=== PATIENT | male | born 1950 | race Caucasian/White ===

== ENCOUNTER 2017-02-10 10:57 | Inpatient (IN) | payer MEDICARE, OTHER ==
[~2017-02-10] VITALS: Ht 170.2 cm; Wt 70.4 kg
[~2017-02-10 10:57] MED LIST: BEVA25VI IV; CALC1CAP10 PO; CALC1CAP8 PO; FERR325T18 PO; MILK140C PO; MORP60TA34 PO; MULT-658 PO; OMEP40CA6 PO; OXYC20TA2 PO; OXYC5CAP2 PO; RANI150C PO; SAW160CA4 PO; SAW1CAPS2 PO; SUCR1ORA11 PO; SUCR1TAB PO
[2017-02-10] MEDS ORDERED: VANCOMYCIN PMX 1GM/200ML 200 ML IVPB SCH (12:00)
[2017-02-10] MEDS ORDERED: SODIUM CHLORIDE 0.9% 1,000ML IVBOLUS ONE ×2 (12:00→12:30)
[2017-02-10] MEDS ORDERED: ACETAMINOPHEN 500 MG TABLET PO ONE (12:00)
[2017-02-10] MEDS ORDERED: PIPERACILLIN/TAZO/PMX 3.375GM 50 ML IVPB ONE (12:00)
[2017-02-10] MEDS ORDERED: VANCOMYCIN PER PHARMACY IV ONE (12:00)
[2017-02-10] MEDS ORDERED: HYDROmorphone 1 MG/ML, 1ML IVPush PRN (12:00)
[2017-02-10] MEDS ORDERED: SODIUM CHLORIDE FLUSH 10ML SYR IVF ONE (12:00)
[2017-02-10 12:07] LABS: MEAN CORPUSCULAR HEMOGLOBIN 28.6 pg (27.5-34.5); MEAN CORPUSCULAR HGB CONC 33.1 g/dL (33.2-36.2); MEAN CORPUSCULAR VOLUME 86.3 fL (81-97); MEAN PLATELET VOLUME 9.8 fL (7.4-10.4); PLATELET COUNT 212 x10^3/uL (130-400); RED BLOOD COUNT 5.28 x10^6/uL (4.38-5.82); RED CELL DISTRIBUTION WIDTH 18.6 % (9.4-14.8)
[2017-02-10] MEDS ORDERED: ACETAMINOPHEN 500 MG TABLET ONE (12:08)
[2017-02-10] MEDS ORDERED: HYDROmorphone 2 MG/ML, 1ML ONE ×3 (12:09→19:21)
[2017-02-10] MEDS ORDERED: PIPERACILLIN/TAZO/PMX 3.375GM 50 ML ONE ×2 (12:09→21:11)
[2017-02-10 12:15] LABS: INTERNATIONAL NORMALIZED RATIO 1.24 (0.93-1.1); PROTHROMBIN TIME 12.7 Seconds (9.6-11.5)
[2017-02-10 12:19] LABS: RAPID INFLUENZA A Negative (Negative); RAPID INFLUENZA B Negative (Negative)
[2017-02-10 12:20] LABS: ALBUMIN 2.6 g/dL (3.4-5.0); ANION GAP 8 mmol/L (5-15); CALCIUM 8.7 mg/dL (8.5-10.1); CHLORIDE 101 mmol/L (98-107)
[2017-02-10 12:26] LABS: MD YES
[2017-02-10 12:28] LABS: BAND#(MANUAL) 0.98 x10^3/uL; BANDS%(MANUAL) 10 % (0-7); LYMPH#(MANUAL) 0.39 x10^3/uL (1-3.4); LYMPHS% (MANUAL) 4 % (22-44); MONOS% (MANUAL) 1 % (2-9); SEG#(MANUAL) 8.33 x10^3/uL (1.8-6.8); SEGS% (MANUAL) 85 % (42-75)
[2017-02-10 12:29] LABS: <PLATELET ESTIMATE> ADEQUATE; <PLT MORPHOLOGY> NORMAL PLT MORPH; ANISOCYTOSIS 1+
[2017-02-10 12:34] LABS: ALANINE AMINOTRANSFERASE 116 U/L (12-78); BILIRUBIN,TOTAL 5.1 mg/dL (0.2-1.0); CREATININE 0.91 mg/dL (0.7-1.3); TOTAL PROTEIN 7.3 g/dL (6.4-8.2)
[2017-02-10 12:42] LABS: ALKALINE PHOSPHATASE 1013 U/L (45-117)
[2017-02-10] MEDS: SODIUM CHLORIDE 0.9% 1,000 ML IV SCH (13:28)
[2017-02-10] MEDS ORDERED: LABETALOL 5MG/ML, 20ML IVPush PRN (13:30)
[2017-02-10] MEDS: SUCRALFATE 1 GM TABLET PO SCH ×2 (13:30→21:18)
[2017-02-10] MEDS ORDERED: ACETAMINOPHEN 325 MG TABLET PO PRN (13:30)
[2017-02-10] MEDS ORDERED: ONDANSETRON ODT 4 MG PO PRN (13:30)
[2017-02-10] MEDS ORDERED: ONDANSETRON 2MG/ML, 2ML IVPush PRN (13:30)
[2017-02-10] MEDS ORDERED: ENALAPRILAT 1.25 MG/ML, 2ML IVPush PRN (13:30)
[2017-02-10 13:46] LABS: HCT (SEDRATE) 45.5 % (39.2-51.8)
[2017-02-10] MEDS ORDERED: VANCOMYCIN PER PHARMACY MC PRN (14:30)
[2017-02-10] MEDS ORDERED: PIPERACILLIN/TAZO/PMX 3.375GM 50 ML IV SCH ×2 (14:30→15:00)
[2017-02-10] MEDS ORDERED: OMNIPAQUE 350 MG/ML, 100ML BOTTLE ONE (15:02)
[2017-02-10 16:01] LABS: CLOSTRIDIUM DIFFICILE ANTIGEN NEGATIVE; CLOSTRIDIUM DIFFICILE TOXIN NEGATIVE (Negative)
[2017-02-10 16:09] LABS: CULTURE INDICATED? YES; MICROSCOPIC INDICATED
[2017-02-10] MEDS: morphine SULFATE 60 MG TABLET.ER PO SCH (21:20)
[2017-02-10] MEDS: OMEPRAZOLE 20 MG CAPSULE.DR PO SCH (21:20)
[2017-02-10] MEDS: PIPERACILLIN/TAZO/PMX 3.375GM 50 ML IV SCH (21:23)
[2017-02-10] MEDS ORDERED: FAMOTIDINE 20 MG TABLET ONE (21:27)
[2017-02-10] MEDS: FAMOTIDINE 20 MG TABLET PO SCH (21:30)
[2017-02-10] MEDS ORDERED: VANCOMYCIN PMX 1GM/200ML 200 ML IVPB ONE (21:30)
[2017-02-10] MEDS ORDERED: PHARMACOKINETIC MONITORING MC PRN (23:00)
[2017-02-10] MEDS ORDERED: VANCOMYCIN 1,200 MG in SODIUM CHLORIDE 0.9% 250 ML IV SCH (23:00)
[2017-02-11 00:53] VITALS: BP 106/72
[2017-02-11] MEDS: SUCRALFATE 1 GM TABLET PO SCH ×4 (01:30→19:30)
[2017-02-11] MEDS: SODIUM CHLORIDE 0.9% 1,000 ML IV SCH ×2 (01:48→09:40)
[2017-02-11 04:12] VITALS: BP 106/71
[2017-02-11 04:51] LABS: ANION GAP 7 mmol/L (5-15); CALCIUM 7.1 mg/dL (8.5-10.1); CHLORIDE 108 mmol/L (98-107); CREATININE 0.82 mg/dL (0.7-1.3)
[2017-02-11 04:59] LABS: MEAN CORPUSCULAR HEMOGLOBIN 28.4 pg (27.5-34.5); MEAN CORPUSCULAR HGB CONC 32.9 g/dL (33.2-36.2); MEAN CORPUSCULAR VOLUME 86.3 fL (81-97); MEAN PLATELET VOLUME 9.5 fL (7.4-10.4); PLATELET COUNT 179 x10^3/uL (130-400); RED CELL DISTRIBUTION WIDTH 19.2 % (9.4-14.8)
[2017-02-11] MEDS: PIPERACILLIN/TAZO/PMX 3.375GM 50 ML IV SCH ×3 (05:09→21:08)
[2017-02-11 05:25] LABS: BASOPHILS % (AUTO) 0 % (0-1); EOSINOPHILS # (AUTO) 0.35 x10^3/uL (0-0.4); EOSINOPHILS % (AUTO) 4 % (1-7); LYMPHOCYTES # (AUTO) 0.87 x10^3/uL (1-3.4); LYMPHOCYTES % (AUTO) 11 % (22-44); MD SCAN; MONOCYTES # (AUTO) 0.57 x10^3/uL (0.2-0.8); MONOCYTES % (AUTO) 7 % (2-9); NEUTROPHILS # (AUTO) 6.37 x10^3/uL (1.8-6.8); NEUTROPHILS % (AUTO) 78 % (42-75)
[2017-02-11] MEDS ORDERED: MAGNESIUM SULFATE PMX 2GM/50ML 50 ML IV ONE (08:00)
[2017-02-11 08:05] VITALS: BP 119/72
[2017-02-11] MEDS: morphine SULFATE 60 MG TABLET.ER PO SCH ×2 (09:36→20:27)
[2017-02-11] MEDS: OMEPRAZOLE 20 MG CAPSULE.DR PO SCH ×2 (09:36→20:28)
[2017-02-11 13:31] VITALS: BP 116/76
[2017-02-11 20:09] VITALS: BP 120/73
[2017-02-11] MEDS: FAMOTIDINE 20 MG TABLET PO SCH (20:28)
[2017-02-12] MEDS: SODIUM CHLORIDE 0.9% 1,000 ML IV SCH ×3 (00:16→21:24)
[2017-02-12 00:57] VITALS: BP 120/79
[2017-02-12] MEDS: SUCRALFATE 1 GM TABLET PO SCH ×4 (00:57→19:30)
[2017-02-12 04:59] LABS: CHLORIDE 107 mmol/L (98-107); MEAN CORPUSCULAR HEMOGLOBIN 28.9 pg (27.5-34.5); MEAN CORPUSCULAR HGB CONC 33.4 g/dL (33.2-36.2); MEAN CORPUSCULAR VOLUME 86.6 fL (81-97); MEAN PLATELET VOLUME 10.2 fL (7.4-10.4); PLATELET COUNT 156 x10^3/uL (130-400); RED BLOOD COUNT 3.97 x10^6/uL (4.38-5.82); RED CELL DISTRIBUTION WIDTH 18.5 % (9.4-14.8)
[2017-02-12] MEDS: PIPERACILLIN/TAZO/PMX 3.375GM 50 ML IV SCH ×3 (05:03→21:31)
[2017-02-12 05:06] LABS: ALANINE AMINOTRANSFERASE 68 U/L (12-78); ALBUMIN 1.5 g/dL (3.4-5.0); ALKALINE PHOSPHATASE 560 U/L (45-117); ANION GAP 8 mmol/L (5-15); BILIRUBIN,TOTAL 4.9 mg/dL (0.2-1.0); CALCIUM 7.6 mg/dL (8.5-10.1); CREATININE 0.83 mg/dL (0.7-1.3); TOTAL PROTEIN 5.2 g/dL (6.4-8.2)
[2017-02-12 05:54] LABS: MD YES
[2017-02-12 05:58] LABS: <PLATELET ESTIMATE> ADEQUATE; <PLT MORPHOLOGY> NORMAL PLT MORPH; ANISOCYTOSIS 1+; BAND#(MANUAL) 0.05 x10^3/uL; BANDS%(MANUAL) 1 % (0-7); EOS#(MANUAL) 0.31 x10^3/uL (0.0-0.4); EOS% (MANUAL) 6 % (1-7); LYMPH#(MANUAL) 0.57 x10^3/uL (1-3.4); LYMPHS% (MANUAL) 11 % (22-44); MONOS#(MANUAL) 0.42 x10^3/uL (0.3-2.7); MONOS% (MANUAL) 8 % (2-9); SEG#(MANUAL) 3.85 x10^3/uL (1.8-6.8); SEGS% (MANUAL) 74 % (42-75)
[2017-02-12 06:56] VITALS: BP 113/70
[2017-02-12] MEDS: morphine SULFATE 60 MG TABLET.ER PO SCH ×2 (09:10→21:31)
[2017-02-12] MEDS: OMEPRAZOLE 20 MG CAPSULE.DR PO SCH ×2 (09:10→21:31)
[2017-02-12 13:57] VITALS: BP 113/76
[2017-02-12 20:51] VITALS: BP 105/70
[2017-02-12] MEDS: FAMOTIDINE 20 MG TABLET PO SCH (21:31)
[2017-02-13] MEDS: SUCRALFATE 1 GM TABLET PO SCH ×4 (01:30→18:49)
[2017-02-13 01:31] VITALS: BP 100/58
[2017-02-13] MEDS: PIPERACILLIN/TAZO/PMX 3.375GM 50 ML IV SCH ×3 (05:21→21:25)
[2017-02-13 07:47] VITALS: BP 115/80
[2017-02-13] MEDS: SODIUM CHLORIDE 0.9% 1,000 ML IV SCH ×2 (09:14→21:25)
[2017-02-13] MEDS: morphine SULFATE 60 MG TABLET.ER PO SCH ×2 (09:14→21:25)
[2017-02-13] MEDS: OMEPRAZOLE 20 MG CAPSULE.DR PO SCH ×2 (09:15→21:25)
[2017-02-13 14:00] VITALS: BP 124/78
[2017-02-13 20:43] VITALS: BP 113/77
[2017-02-13] MEDS: FAMOTIDINE 20 MG TABLET PO SCH (21:25)
[2017-02-14] MEDS: SUCRALFATE 1 GM TABLET PO SCH ×4 (01:24→21:00)
[2017-02-14 01:54] VITALS: BP 109/68
[2017-02-14] MEDS: PIPERACILLIN/TAZO/PMX 3.375GM 50 ML IV SCH ×3 (05:31→21:29)
[2017-02-14 05:50] LABS: MEAN CORPUSCULAR HEMOGLOBIN 28.7 pg (27.5-34.5); MEAN CORPUSCULAR HGB CONC 33.7 g/dL (33.2-36.2); MEAN CORPUSCULAR VOLUME 85.1 fL (81-97); MEAN PLATELET VOLUME 9.8 fL (7.4-10.4); PLATELET COUNT 158 x10^3/uL (130-400); RED CELL DISTRIBUTION WIDTH 19.1 % (9.4-14.8)
[2017-02-14 06:00] LABS: CHLORIDE 109 mmol/L (98-107)
[2017-02-14 06:12] LABS: MD YES
[2017-02-14 06:16] LABS: <PLATELET ESTIMATE> ADEQUATE; ANISOCYTOSIS 1+; BAND#(MANUAL) 0.09 x10^3/uL; BANDS%(MANUAL) 2 % (0-7); BASOS#(MANUAL) 0.04 x10^3/uL (0-0.1); BASOS% (MANUAL) 1 % (0-1); EOS#(MANUAL) 0.18 x10^3/uL (0.0-0.4); EOS% (MANUAL) 4 % (1-7); LYMPH#(MANUAL) 0.53 x10^3/uL (1-3.4); LYMPHS% (MANUAL) 12 % (22-44); MONOS#(MANUAL) 0.66 x10^3/uL (0.3-2.7); MONOS% (MANUAL) 15 % (2-9); SEGS% (MANUAL) 66 % (42-75)
[2017-02-14 06:18] LABS: <PLT MORPHOLOGY> NORMAL PLT MORPH; POLYCHROMASIA 1+
[2017-02-14] MEDS: SODIUM CHLORIDE 0.9% 1,000 ML IV SCH (06:34)
[2017-02-14 06:35] LABS: HCT (SEDRATE) 33.2 % (39.2-51.8)
[2017-02-14 06:43] LABS: ANION GAP 7 mmol/L (5-15); CREATININE 0.68 mg/dL (0.7-1.3)
[2017-02-14 07:45] VITALS: BP 105/68
[2017-02-14] MEDS: morphine SULFATE 60 MG TABLET.ER PO SCH ×2 (09:48→21:28)
[2017-02-14] MEDS: OMEPRAZOLE 20 MG CAPSULE.DR PO SCH ×2 (09:48→21:28)
[2017-02-14] MEDS ORDERED: POTASSIUM CHLORIDE 20 MEQ TAB.ER.PRT PO ONE (12:30)
[2017-02-14] MEDS ORDERED: FUROSEMIDE 40 MG/4 ML IV ONE (12:30)
[2017-02-14 14:15] VITALS: BP 101/64
[2017-02-14 19:52] VITALS: BP 101/66
[2017-02-14] MEDS: FAMOTIDINE 20 MG TABLET PO SCH (21:28)
[2017-02-15 01:38] VITALS: BP 99/63
[2017-02-15] MEDS: SUCRALFATE 1 GM TABLET PO SCH ×2 (02:47→09:00)
[2017-02-15] MEDS: PIPERACILLIN/TAZO/PMX 3.375GM 50 ML IV SCH (05:32)
[2017-02-15 07:31] VITALS: BP 104/54
[2017-02-15] MEDS: OMEPRAZOLE 20 MG CAPSULE.DR PO SCH (09:47)
[2017-02-15] MEDS: morphine SULFATE 60 MG TABLET.ER PO SCH (09:48)
[2017-02-15] MEDS ORDERED: LEVO750T26 PO (12:01)
[2017-02-15] MEDS ORDERED: FURO-93 PO (12:11)
[2017-02-15 13:20] VITALS: BP 94/61
== END 2017-02-15 13:34 | disposition home or self-care (01) | DRG 871 ==
LOC: ED 12:52 → EDIP 12:57 → ED 13:24 → 3NW 02-11 00:30
PROVIDERS: ADMIT Internal Medicine; ATTEND Internal Medicine
DX: A41.9 Sepsis, unspecified organism (principal); E43 Unspecified severe protein-calorie malnutrition; L89.152 Pressure ulcer of sacral region, stage 2; C79.51 Secondary malignant neoplasm of bone; E87.1 Hypo-osmolality and hyponatremia; R17 Unspecified jaundice; C64.9 Malignant neoplasm of unspecified kidney, except renal pelvis; F11.20 Opioid dependence, uncomplicated; B96.1 Klebsiella pneumoniae [K. pneumoniae] as the cause of diseases classified elsewhere; R74.8 Abnormal levels of other serum enzymes; Z85.528 Personal history of other malignant neoplasm of kidney; G89.3 Neoplasm related pain (acute) (chronic); Z87.11 Personal history of peptic ulcer disease; Z90.411 Acquired partial absence of pancreas; Z90.5 Acquired absence of kidney; Z92.21 Personal history of antineoplastic chemotherapy; Z87.891 Personal history of nicotine dependence
CPT/HCPCS: 36415; 71010; 74177; 80048; 80053; 81001; 83605; 83735; 84100; 84145; 84439; 84443; 85025; 85610; 85651; 85730; 87040; 87046; 87077; 87086; 87186; 87324; 87400; 87899; 89055; 93005; 96361; 96365; 96366; 96367; 96368; 96375; 96376; J1170; J1940; J2543; J3370; Q9967; J3475; J7030; J7050

== ENCOUNTER 2017-03-05 22:32 | Inpatient (IN) | payer MEDICARE ==
[~2017-03-05] VITALS: Ht 170.2 cm; Wt 64.0 kg
[~2017-03-05 22:32] MED LIST changes: +FURO-93 PO; +LEVO750T26 PO
[2017-03-05] MEDS ORDERED: OMNIPAQUE 350 MG/ML, 100ML BOTTLE ONE (23:00)
[2017-03-05] MEDS ORDERED: ONDANSETRON 2MG/ML, 2ML ONE (23:25)
[2017-03-05] MEDS ORDERED: ONDANSETRON 2MG/ML, 2ML IVPush ONE (23:30)
[2017-03-05] MEDS ORDERED: SODIUM CHLORIDE FLUSH 10ML SYR IVF ONE (23:30)
[2017-03-05] MEDS ORDERED: SODIUM CHLORIDE 0.9% 1,000ML IVBOLUS ONE (23:30)
[2017-03-05 23:36] LABS: CULTURE INDICATED? YES; MICROSCOPIC INDICATED
[2017-03-05 23:51] LABS: MEAN CORPUSCULAR HEMOGLOBIN 28.8 pg (27.5-34.5); MEAN CORPUSCULAR HGB CONC 32.8 g/dL (33.2-36.2); MEAN CORPUSCULAR VOLUME 87.8 fL (81-97); MEAN PLATELET VOLUME 11.3 fL (7.4-10.4); PLATELET COUNT 362 x10^3/uL (130-400); RED BLOOD COUNT 5.03 x10^6/uL (4.38-5.82); RED CELL DISTRIBUTION WIDTH 22.3 % (9.4-14.8)
[2017-03-05] MEDS ORDERED: HYDROmorphone 2 MG/ML, 1ML ONE (23:53)
[2017-03-05 23:57] LABS: ALANINE AMINOTRANSFERASE 47 U/L (12-78); ALBUMIN 1.7 g/dL (3.4-5.0); ANION GAP 9 mmol/L (5-15); CALCIUM 8.4 mg/dL (8.5-10.1); CHLORIDE 97 mmol/L (98-107)
[2017-03-05 23:58] LABS: CREATININE 1.02 mg/dL (0.7-1.3)
[2017-03-06 00:01] LABS: BILIRUBIN,TOTAL 21.3 mg/dL (0.2-1.0)
[2017-03-06 00:03] LABS: ALKALINE PHOSPHATASE 819 U/L (45-117); CREATINE KINASE, TOTAL 63 U/L (39-308)
[2017-03-06 00:23] LABS: MD YES
[2017-03-06 00:25] LABS: LYMPH#(MANUAL) 0.41 x10^3/uL (1-3.4); LYMPHS% (MANUAL) 3 % (22-44); MONOS#(MANUAL) 1.22 x10^3/uL (0.3-2.7); MONOS% (MANUAL) 9 % (2-9); SEG#(MANUAL) 11.97 x10^3/uL (1.8-6.8); SEGS% (MANUAL) 88 % (42-75)
[2017-03-06 00:27] LABS: <PLATELET ESTIMATE> ADEQUATE; ANISOCYTOSIS 1+; LARGE PLATELETS 1+; POLYCHROMASIA 1+
[2017-03-06] MEDS ORDERED: HYDROmorphone 1 MG/ML, 1ML IV ONE ×2 (00:30)
[2017-03-06 02:01] VITALS: BP 101/69
[2017-03-06] MEDS ORDERED: GABA300C10 PO (02:10)
[2017-03-06] MEDS ORDERED: OXYC30TA PO (02:10)
[2017-03-06 02:11] VITALS: BP 101/69
[2017-03-06] MEDS ORDERED: RANI150C PO (03:10)
[2017-03-06] MEDS ORDERED: ONDANSETRON 2MG/ML, 2ML IVPush PRN ×2 (04:00→04:30)
[2017-03-06] MEDS ORDERED: ACETAMINOPHEN 325 MG TABLET PO PRN (04:30)
[2017-03-06] MEDS ORDERED: OXYcodone IR 30 MG TABLET PO PRN (04:30)
[2017-03-06] MEDS: LACTATED RINGERS 1,000 ML IV SCH ×2 (05:03→20:17)
[2017-03-06] MEDS: ENOXAPARIN 40 MG/0.4 ML SQ SCH (05:14)
[2017-03-06] MEDS: SUCRALFATE 1 GM TABLET PO SCH ×4 (05:14→22:30)
[2017-03-06] MEDS: KETOROLAC 30 MG/1 ML IVPush PRN (05:14)
[2017-03-06 07:15] VITALS: BP 91/57
[2017-03-06] MEDS: morphine SULFATE 60 MG TABLET.ER PO SCH ×2 (10:20→21:00)
[2017-03-06] MEDS ORDERED: LORazepam 2 MG/ML, 1ML IVPush ONE (11:00)
[2017-03-06 13:25] VITALS: BP 92/53
[2017-03-06] MEDS: GABAPENTIN 300 MG CAPSULE PO SCH ×3 (13:38→21:00)
[2017-03-06] MEDS: FAMOTIDINE 20 MG TABLET PO SCH ×2 (13:39→21:00)
[2017-03-06] MEDS: OMEPRAZOLE 20 MG CAPSULE.DR PO SCH ×2 (13:40→21:00)
[2017-03-06 19:54] VITALS: BP 92/56
[2017-03-07 02:58] VITALS: BP 93/60
[2017-03-07] MEDS: ENOXAPARIN 40 MG/0.4 ML SQ SCH (04:18)
[2017-03-07] MEDS: SUCRALFATE 1 GM TABLET PO SCH ×4 (04:18→23:02)
[2017-03-07 04:46] LABS: MEAN CORPUSCULAR HGB CONC 32.9 g/dL (33.2-36.2); MEAN CORPUSCULAR VOLUME 88.3 fL (81-97); MEAN PLATELET VOLUME 10.6 fL (7.4-10.4); PLATELET COUNT 291 x10^3/uL (130-400); RED BLOOD COUNT 4.09 x10^6/uL (4.38-5.82); RED CELL DISTRIBUTION WIDTH 22.3 % (9.4-14.8)
[2017-03-07 04:49] LABS: ALANINE AMINOTRANSFERASE 33 U/L (12-78); ALBUMIN 1.3 g/dL (3.4-5.0); ANION GAP 6 mmol/L (5-15); CALCIUM 7.9 mg/dL (8.5-10.1); CHLORIDE 102 mmol/L (98-107); CREATININE 0.86 mg/dL (0.7-1.3)
[2017-03-07 04:51] LABS: ALKALINE PHOSPHATASE 616 U/L (45-117); BILIRUBIN,TOTAL 13.7 mg/dL (0.2-1.0); TOTAL PROTEIN 5.9 g/dL (6.4-8.2)
[2017-03-07 05:47] LABS: MD YES
[2017-03-07 05:49] LABS: BASOS#(MANUAL) 0.11 x10^3/uL (0-0.1); BASOS% (MANUAL) 1 % (0-1); EOS#(MANUAL) 0.22 x10^3/uL (0.0-0.4); EOS% (MANUAL) 2 % (1-7); LYMPH#(MANUAL) 0.78 x10^3/uL (1-3.4); LYMPHS% (MANUAL) 7 % (22-44); MONOS#(MANUAL) 0.67 x10^3/uL (0.3-2.7); MONOS% (MANUAL) 6 % (2-9); SEG#(MANUAL) 9.32 x10^3/uL (1.8-6.8); SEGS% (MANUAL) 84 % (42-75)
[2017-03-07 05:51] LABS: ANISOCYTOSIS 1+; POLYCHROMASIA 1+
[2017-03-07 05:52] LABS: <PLATELET ESTIMATE> ADEQUATE; LARGE PLATELETS 1+
[2017-03-07 07:23] VITALS: BP 93/61
[2017-03-07] MEDS: LACTATED RINGERS 1,000 ML IV SCH ×2 (09:14→21:39)
[2017-03-07] MEDS: FAMOTIDINE 20 MG TABLET PO SCH ×2 (09:27→20:15)
[2017-03-07] MEDS: OMEPRAZOLE 20 MG CAPSULE.DR PO SCH ×2 (09:27→20:15)
[2017-03-07] MEDS: GABAPENTIN 300 MG CAPSULE PO SCH ×3 (09:27→20:15)
[2017-03-07] MEDS: morphine SULFATE 60 MG TABLET.ER PO SCH ×2 (09:27→20:15)
[2017-03-07 12:45] VITALS: BP 93/60
[2017-03-07 19:52] VITALS: BP 93/58
[2017-03-08 00:54] VITALS: BP 96/63
[2017-03-08] MEDS: ENOXAPARIN 40 MG/0.4 ML SQ SCH (04:10)
[2017-03-08] MEDS: SUCRALFATE 1 GM TABLET PO SCH ×4 (04:10→19:58)
[2017-03-08 04:44] LABS: CHLORIDE 103 mmol/L (98-107)
[2017-03-08 04:56] LABS: ALANINE AMINOTRANSFERASE 30 U/L (12-78); ALBUMIN 1.2 g/dL (3.4-5.0); ALKALINE PHOSPHATASE 578 U/L (45-117); ANION GAP 9 mmol/L (5-15); BILIRUBIN,TOTAL 11.8 mg/dL (0.2-1.0); CALCIUM 7.8 mg/dL (8.5-10.1); TOTAL PROTEIN 5.6 g/dL (6.4-8.2)
[2017-03-08] MEDS: GABAPENTIN 300 MG CAPSULE PO SCH ×3 (09:00→19:57)
[2017-03-08] MEDS: morphine SULFATE 60 MG TABLET.ER PO SCH (09:00)
[2017-03-08] MEDS: FAMOTIDINE 20 MG TABLET PO SCH ×2 (09:00→19:57)
[2017-03-08] MEDS: LACTATED RINGERS 1,000 ML IV SCH (09:50)
[2017-03-08] MEDS ORDERED: ROCURONIUM 10 MG/ML,10ML ONE (10:42)
[2017-03-08] MEDS ORDERED: DEXAMETHASONE 4 MG/ML, 1ML ONE (10:42)
[2017-03-08] MEDS ORDERED: PROPOFOL 10 MG/ML, 20ML ONE (10:42)
[2017-03-08] MEDS ORDERED: SUCCINYLCHOLINE 20 MG/ML, 10ML ONE (10:42)
[2017-03-08] MEDS ORDERED: FENTANYL PF 100 MCG/2ML ONE ×2 (10:44→11:22)
[2017-03-08] MEDS ORDERED: PROPOFOL 0 ML IV ONE (13:01)
[2017-03-08] MEDS ORDERED: NOREPINEPHRINE 4 MG in SODIUM CHLORIDE 0.9% 246 ML IV PRN (13:30)
[2017-03-08] MEDS ORDERED: PROPOFOL 100 ML IV PRN (13:30)
[2017-03-08] MEDS ORDERED: PIPERACILLIN/TAZO/PMX 3.375GM 50 ML IV SCH (13:30)
[2017-03-08] MEDS ORDERED: LIDOCAINE-MPF 1%, 2ML ENDO PRN (14:30)
[2017-03-08] MEDS: AMPICILLIN/SULBACTAM 3 GM in SODIUM CHLORIDE 0.9% 100 ML IV SCH ×2 (14:51→19:46)
[2017-03-08 15:31] LABS: MEAN CORPUSCULAR HEMOGLOBIN 29.5 pg (27.5-34.5); MEAN CORPUSCULAR HGB CONC 33.2 g/dL (33.2-36.2); MEAN CORPUSCULAR VOLUME 88.8 fL (81-97); PLATELET COUNT 346 x10^3/uL (130-400); RED BLOOD COUNT 4.34 x10^6/uL (4.38-5.82); RED CELL DISTRIBUTION WIDTH 22.5 % (9.4-14.8)
[2017-03-08 15:34] LABS: ANION GAP 9 mmol/L (5-15); CALCIUM 7.9 mg/dL (8.5-10.1); CHLORIDE 101 mmol/L (98-107); CREATININE 0.77 mg/dL (0.7-1.3)
[2017-03-08] MEDS: PROPOFOL 100 ML IV PRN ×2 (15:34→21:02)
[2017-03-08] MEDS: FENTANYL PF 2,500 MCG in SODIUM CHLORIDE 0.9% 200 ML IV PRN (16:04)
[2017-03-08 16:24] LABS: MD YES
[2017-03-08 16:29] LABS: BAND#(MANUAL) 1.01 x10^3/uL; BANDS%(MANUAL) 7 % (0-7); LYMPH#(MANUAL) 0.43 x10^3/uL (1-3.4); LYMPHS% (MANUAL) 3 % (22-44); MONOS#(MANUAL) 0.58 x10^3/uL (0.3-2.7); MONOS% (MANUAL) 4 % (2-9); SEGS% (MANUAL) 86 % (42-75)
[2017-03-08] MEDS ORDERED: SODIUM CHLORIDE 0.9%, 500ML IVBOLUS ONE ×2 (16:30→19:00)
[2017-03-08 16:31] LABS: ANISOCYTOSIS 2+
[2017-03-08 16:32] LABS: MICROCYTOSIS 1+; POLYCHROMASIA 1+
[2017-03-08 16:34] LABS: <PLATELET ESTIMATE> ADEQUATE; LARGE PLATELETS 1+
[2017-03-08] MEDS ORDERED: VASOPRESSIN 100 UNIT in SODIUM CHLORIDE 0.9% 495 ML IV PRN (19:30)
[2017-03-08] MEDS ORDERED: SODIUM CHLORIDE 0.9% 1,000ML IVBOLUS ONE (19:30)
[2017-03-08] MEDS: SODIUM CHLORIDE 0.9% 1,000 ML IV SCH (21:01)
[2017-03-08] MEDS: NOREPINEPHRINE 8 MG in SODIUM CHLORIDE 0.9% 242 ML IV PRN (22:01)
[2017-03-09] MEDS: AMPICILLIN/SULBACTAM 3 GM in SODIUM CHLORIDE 0.9% 100 ML IV SCH ×4 (02:06→19:26)
[2017-03-09] MEDS: SUCRALFATE 1 GM TABLET PO SCH ×2 (02:06→10:30)
[2017-03-09] MEDS: ENOXAPARIN 40 MG/0.4 ML SQ SCH (04:16)
[2017-03-09] MEDS: NOREPINEPHRINE 8 MG in SODIUM CHLORIDE 0.9% 242 ML IV PRN ×3 (04:25→17:15)
[2017-03-09 04:45] LABS: MEAN CORPUSCULAR HEMOGLOBIN 29.7 pg (27.5-34.5); MEAN CORPUSCULAR HGB CONC 33.1 g/dL (33.2-36.2); MEAN CORPUSCULAR VOLUME 89.7 fL (81-97); MEAN PLATELET VOLUME 10.8 fL (7.4-10.4); PLATELET COUNT 457 x10^3/uL (130-400); RED BLOOD COUNT 3.86 x10^6/uL (4.38-5.82); RED CELL DISTRIBUTION WIDTH 22.1 % (9.4-14.8)
[2017-03-09 04:55] LABS: ALANINE AMINOTRANSFERASE 28 U/L (12-78); ALBUMIN 1.1 g/dL (3.4-5.0); ANION GAP 10 mmol/L (5-15); CALCIUM 7.1 mg/dL (8.5-10.1); CHLORIDE 106 mmol/L (98-107); CREATININE 0.92 mg/dL (0.7-1.3)
[2017-03-09 04:57] LABS: ALKALINE PHOSPHATASE 479 U/L (45-117); TOTAL PROTEIN 5.6 g/dL (6.4-8.2)
[2017-03-09 05:18] LABS: MD YES
[2017-03-09 05:20] LABS: BAND#(MANUAL) 1.22 x10^3/uL; BANDS%(MANUAL) 4 % (0-7); LYMPH#(MANUAL) 0.31 x10^3/uL (1-3.4); LYMPHS% (MANUAL) 1 % (22-44); MONOS#(MANUAL) 2.75 x10^3/uL (0.3-2.7); MONOS% (MANUAL) 9 % (2-9); SEG#(MANUAL) 26.23 x10^3/uL (1.8-6.8); SEGS% (MANUAL) 86 % (42-75)
[2017-03-09 05:21] LABS: ANISOCYTOSIS 1+; MICROCYTOSIS 1+; POLYCHROMASIA 1+
[2017-03-09 05:22] LABS: <PLATELET ESTIMATE> INCREASED; LARGE PLATELETS 1+
[2017-03-09] MEDS ORDERED: MAGNESIUM SULFATE PMX 2GM/50ML 50 ML IV ONE (08:00)
[2017-03-09] MEDS: SODIUM CHLORIDE 0.9% 1,000 ML IV SCH ×2 (08:04→19:47)
[2017-03-09] MEDS: GABAPENTIN 300 MG CAPSULE PO SCH ×3 (09:00→21:00)
[2017-03-09] MEDS: PANTOPRAZOLE 40 MG IV IVPush SCH (10:07)
[2017-03-09] MEDS: PROPOFOL 100 ML IV PRN ×2 (14:08→21:19)
[2017-03-09] MEDS: FENTANYL PF 2,500 MCG in SODIUM CHLORIDE 0.9% 200 ML IV PRN (19:27)
[2017-03-10] MEDS: AMPICILLIN/SULBACTAM 3 GM in SODIUM CHLORIDE 0.9% 100 ML IV SCH ×4 (01:38→19:09)
[2017-03-10] MEDS: PROPOFOL 100 ML IV PRN (01:49)
[2017-03-10] MEDS: SODIUM CHLORIDE 0.9% 1,000 ML IV SCH ×2 (03:00→11:29)
[2017-03-10] MEDS: NOREPINEPHRINE 8 MG in SODIUM CHLORIDE 0.9% 242 ML IV PRN (03:24)
[2017-03-10 04:48] LABS: MEAN CORPUSCULAR HEMOGLOBIN 29.9 pg (27.5-34.5); MEAN CORPUSCULAR VOLUME 90.5 fL (81-97); MEAN PLATELET VOLUME 10.3 fL (7.4-10.4); PLATELET COUNT 363 x10^3/uL (130-400); RED BLOOD COUNT 3.28 x10^6/uL (4.38-5.82); RED CELL DISTRIBUTION WIDTH 22.6 % (9.4-14.8)
[2017-03-10] MEDS: ENOXAPARIN 40 MG/0.4 ML SQ SCH (04:48)
[2017-03-10 05:03] VITALS: BP 102/55
[2017-03-10 05:39] LABS: MD YES
[2017-03-10 05:42] LABS: LYMPH#(MANUAL) 1.23 x10^3/uL (1-3.4); LYMPHS% (MANUAL) 6 % (22-44); MONOS#(MANUAL) 1.03 x10^3/uL (0.3-2.7); MONOS% (MANUAL) 5 % (2-9); SEG#(MANUAL) 18.25 x10^3/uL (1.8-6.8); SEGS% (MANUAL) 89 % (42-75)
[2017-03-10 05:43] LABS: <PLATELET ESTIMATE> ADEQUATE; ANISOCYTOSIS 1+; LARGE PLATELETS 1+; MICROCYTOSIS 1+; POLYCHROMASIA 1+
[2017-03-10 06:21] LABS: ALANINE AMINOTRANSFERASE 21 U/L (12-78); ANION GAP 11 mmol/L (5-15); CALCIUM 7.3 mg/dL (8.5-10.1); CHLORIDE 109 mmol/L (98-107); CREATININE 0.73 mg/dL (0.7-1.3)
[2017-03-10 06:23] LABS: ALKALINE PHOSPHATASE 370 U/L (45-117); BILIRUBIN,TOTAL 8.3 mg/dL (0.2-1.0); TOTAL PROTEIN 5.4 g/dL (6.4-8.2)
[2017-03-10] MEDS: GABAPENTIN 300 MG CAPSULE PO SCH ×3 (08:07→21:17)
[2017-03-10] MEDS: PANTOPRAZOLE 40 MG IV IVPush SCH (08:07)
[2017-03-10] MEDS: KETOROLAC 30 MG/1 ML IVPush PRN ×2 (15:11→20:19)
[2017-03-10] MEDS ORDERED: MORPHINE SULFATE 4 MG/ML, 1ML ONE (21:06)
[2017-03-10] MEDS ORDERED: MORPHINE SULFATE 4 MG/ML, 1ML IVPush PRN (21:30)
[2017-03-10] MEDS ORDERED: MORPHINE SULFATE 4 MG/ML, 1ML IVPush ONE (21:30)
[2017-03-10] MEDS ORDERED: ATROPINE OPHTH SOLN 1%, 2ML PO PRN (22:30)
[2017-03-10] MEDS ORDERED: LORazepam 2 MG/ML, 1ML IV PRN ×2 (22:30→23:30)
[2017-03-10] MEDS: LORazepam 2 MG/ML, 1ML IV PRN (23:31)
[2017-03-11] MEDS: FENTANYL PF 100 MCG/2ML IV PRN ×3 (02:31→13:14)
[2017-03-11] MEDS: LORazepam 2 MG/ML, 1ML IV PRN (04:31)
== END 2017-03-11 11:24 | disposition hospice, home (50) | DRG 853 ==
LOC: ED 22:56 → EDIP 03-06 01:12 → 3NW 03-06 01:54 → CCU 03-08 12:16 → ICU 03-09
PROVIDERS: ADMIT Hospitalist; ATTEND Hospitalist
PROC: 0D968ZZ Drainage of Stomach, Via Natural or Artificial Opening Endoscopic (ICD-10-PCS; 2017-03-08)
PROC: 0BCB8ZZ Extirpation of Matter from Left Lower Lobe Bronchus, Via Natural or Artificial Opening Endoscopic (ICD-10-PCS; 2017-03-08)
PROC: 0BC48ZZ Extirpation of Matter from Right Upper Lobe Bronchus, Via Natural or Artificial Opening Endoscopic (ICD-10-PCS; 2017-03-08)
PROC: 0BC88ZZ Extirpation of Matter from Left Upper Lobe Bronchus, Via Natural or Artificial Opening Endoscopic (ICD-10-PCS; 2017-03-08)
PROC: 0BC68ZZ Extirpation of Matter from Right Lower Lobe Bronchus, Via Natural or Artificial Opening Endoscopic (ICD-10-PCS; 2017-03-08)
PROC: 02H633Z Insertion of Infusion Device into Right Atrium, Percutaneous Approach (ICD-10-PCS; 2017-03-08)
PROC: 5A1935Z Respiratory Ventilation, Less than 24 Consecutive Hours (ICD-10-PCS; principal; 2017-03-10)
DX: A41.9 Sepsis, unspecified organism (principal); K83.1 Obstruction of bile duct; J96.00 Acute respiratory failure, unspecified whether with hypoxia or hypercapnia; E43 Unspecified severe protein-calorie malnutrition; J69.0 Pneumonitis due to inhalation of food and vomit; C25.9 Malignant neoplasm of pancreas, unspecified; K27.4 Chronic or unspecified peptic ulcer, site unspecified, with hemorrhage; C79.51 Secondary malignant neoplasm of bone; D50.0 Iron deficiency anemia secondary to blood loss (chronic); C64.9 Malignant neoplasm of unspecified kidney, except renal pelvis; Z51.5 Encounter for palliative care; Z66 Do not resuscitate; Z68.22 Body mass index [BMI] 22.0-22.9, adult; G89.29 Other chronic pain; K21.9 Gastro-esophageal reflux disease without esophagitis; Z53.9 Procedure and treatment not carried out, unspecified reason; Z85.528 Personal history of other malignant neoplasm of kidney; Z85.828 Personal history of other malignant neoplasm of skin; Z87.11 Personal history of peptic ulcer disease; Z87.891 Personal history of nicotine dependence; Z90.411 Acquired partial absence of pancreas; Z90.5 Acquired absence of kidney; Z80.0 Family history of malignant neoplasm of digestive organs; Z80.1 Family history of malignant neoplasm of trachea, bronchus and lung; Z80.3 Family history of malignant neoplasm of breast; Z80.8 Family history of malignant neoplasm of other organs or systems
CPT/HCPCS: 31622; 36415; 36600; 71045; 74177; 74181; 80048; 80053; 81001; 82550; 82803; 83605; 83690; 83735; 84100; 84478; 85014; 85018; 85025; 86301; 87070; 87081; 87086; 87205; 94002; 94003; 94150; 96361; 96374; 96375; J0295; J1100; J1170; J1650; J1885; J2405; J2704; J3010; Q9967; C9113; J0330; J2060; J3475; J7030; J7040; J7050; J7120